=== PATIENT | male | born 1985 | race Caucasian/White ===

== ENCOUNTER 2020-07-31 22:48 | Emergency (ER) | payer BC, SELFPAY ==
[~2020-07-31] VITALS: Ht 175.3 cm; Wt 89.4 kg
--- NOTE | 2020-08-01 00:54 | NUR ---
ERMD IN ROOM FOR EVAL. PT C/O SORE THROAT, COUGH THAT STARTED THIS AM. NO COVID VAX, HAS NOT HAD COVID YET. NO FEVERS/ N/V/D. CHRISS CP. GAIT STEADY, NAD.
[2020-08-01] MEDS ORDERED: DEXAMETHASONE 4 MG/ML, 1ML IM ONE (01:00)
[2020-08-01] MEDS ORDERED: DEXAMETHASONE 4 MG/ML, 5ML ONE (01:23)
[2020-08-01] MEDS ORDERED: PLEASE ENTER ALLERGIES MC SCH (01:30)
[2020-08-01 01:39] VITALS: BP 111/71
== END 2020-08-01 02:30 | disposition home or self-care (01) ==
LOC: ED 08-01 01:45
DX: J20.8 Acute bronchitis due to other specified organisms (principal); Z20.822 Contact with and (suspected) exposure to COVID-19; B97.89 Other viral agents as the cause of diseases classified elsewhere; R13.10 Dysphagia, unspecified; R94.31 Abnormal electrocardiogram [ECG] [EKG]
CPT/HCPCS: 70360; 71045; 93005; 96372; 99285; J1100; U0003; U0005